=== PATIENT | female | born 1970 | race Caucasian/White ===

== ENCOUNTER 2020-09-26 16:08 | Emergency (ER) | payer OTHER ==
[~2020-09-26 16:08] MED LIST: CLEOCIN HCL300 MG PO
== END 2020-09-26 20:09 | disposition home or self-care (01) ==
LOC: ER1 16:08
DX: S06.9X9A Unspecified intracranial injury with loss of consciousness of unspecified duration, initial encounter (principal); S01.111A Laceration without foreign body of right eyelid and periocular area, initial encounter; S80.01XA Contusion of right knee, initial encounter; S60.221A Contusion of right hand, initial encounter; W10.9XXA Fall (on) (from) unspecified stairs and steps, initial encounter; F17.200 Nicotine dependence, unspecified, uncomplicated; Y92.009 Unspecified place in unspecified non-institutional (private) residence as the place of occurrence of the external cause; Z23 Encounter for immunization
CPT/HCPCS: 12001; 70450; 73130; 73564; 90471; 90715; 99284

== ENCOUNTER → 2021-06-12 | Outpatient (CLI) | payer OTHER | LOC: RAD 13:48 | DX: R05.9 Cough, unspecified (principal); M79.641 Pain in right hand; M54.2 Cervicalgia; M54.6 Pain in thoracic spine; M54.50 Low back pain, unspecified; M47.816 Spondylosis without myelopathy or radiculopathy, lumbar region; M47.812 Spondylosis without myelopathy or radiculopathy, cervical region; M47.814 Spondylosis without myelopathy or radiculopathy, thoracic region; S62.326A Displaced fracture of shaft of fifth metacarpal bone, right hand, initial encounter for closed fracture; W22.09XA Striking against other stationary object, initial encounter | CPT/HCPCS: 71046; 72050; 72072; 72110; 73130 ==

== ENCOUNTER → 2021-11-07 | Outpatient (CLI) | payer OTHER | LOC: KOH-I 15:41 | DX: J32.9 Chronic sinusitis, unspecified (principal) | CPT/HCPCS: 70486 ==

== ENCOUNTER 2021-11-14 08:13 | Inpatient (IN) | payer OTHER ==
[~2021-11-14] VITALS: Ht 175.3 cm; Wt 88.9 kg
[2021-11-14 09:15] LABS: HEMOGLOBIN 11.5 gm/dl (12.3-15.3); RED BLOOD COUNT 3.59 M/UL (4.00-5.10); WHITE BLOOD COUNT 9.8 K/UL (4.5-11.0)
[2021-11-14] MEDS ORDERED: CLONIDINE HCL0.1 MG PO (12:34)
[2021-11-14] MEDS ORDERED: GABAPENTIN800 MG PO (12:34)
[2021-11-14] MEDS ORDERED: SERTRALINE HCL50 MG PO (12:35)
[2021-11-14] MEDS ORDERED: ONDANSETRON ODT4 MG PO (12:35)
[2021-11-14] MEDS ORDERED: TOPIRAMATE200 MG PO (12:36)
[2021-11-15 02:31] LABS: HEMOGLOBIN 11.4 gm/dl (12.3-15.3); RED BLOOD COUNT 3.58 M/UL (4.00-5.10)
[2021-11-16 02:05] LABS: RED BLOOD COUNT 3.44 M/UL (4.00-5.10); WHITE BLOOD COUNT 6.5 K/UL (4.5-11.0)
--- NOTE | 2021-11-17 11:10 | NUR ---
PT ASKING TO GO SMOKE , I TOLD HER WE WERE A NON SMOKING FACILITY SHE TOLD ME TO UNHOOK HER AND SHE LEFT THE FLOOR. WHEN SHE RETURNED SHE ASKED SEVERAL TIMES WHEN THE DOCTOR WOULD BE MAKING ROUNDS . I TOLD HER HOPEFULLY SOON. WHEN SHE ASKED ME LATER FOR SOMETHING FOR HEART BURN I CALLED DR FERRIS AND SHE ORDERED TUMS AND SAID SHE WAS IN THE ER AND WOULD COME SEE HER NEXT. THE MAN WITH HER ASKED WHEN SHE WAS GOING HOME? I TOLD HIM WE WOULD HAVE TO ASK THE DOCTOR ,I DIDNT KNOW WHEN HE SAID IN A LOUD VOICE SHE IS GOING HOME TODAY. I SAID OK AND WALKED AWAY
--- NOTE | 2021-11-17 15:55 | NUR ---
DR FERRIS IN THE ROOM
== END 2021-11-17 16:17 | disposition home or self-care (01) | DRG 640 ==
LOC: ER1 08:13 → CDU 11:16 → PROG CARE 11:16 → MED SURG 4 11-16 16:50
PROVIDERS: Physician Assistant; Physician Assistant Medical; ADMIT Internal Medicine
DX: E87.1 Hypo-osmolality and hyponatremia (principal); J18.9 Pneumonia, unspecified organism; N30.00 Acute cystitis without hematuria; N17.9 Acute kidney failure, unspecified; E87.2 Acidosis; F17.200 Nicotine dependence, unspecified, uncomplicated; E87.6 Hypokalemia; Z20.822 Contact with and (suspected) exposure to COVID-19; G40.909 Epilepsy, unspecified, not intractable, without status epilepticus; B96.20 Unspecified Escherichia coli [E. coli] as the cause of diseases classified elsewhere; N18.30 Chronic kidney disease, stage 3 unspecified; D64.9 Anemia, unspecified; E27.8 Other specified disorders of adrenal gland; Z88.0 Allergy status to penicillin; Z90.710 Acquired absence of both cervix and uterus; Z88.8 Allergy status to other drugs, medicaments and biological substances; Z98.890 Other specified postprocedural states; Z83.3 Family history of diabetes mellitus
CPT/HCPCS: 0240U; 36415; 71045; 71250; 80048; 80053; 81001; 82436; 82570; 83605; 83735; 83930; 83935; 84133; 84295; 84300; 85025; 85027; 87040; 87077; 87086; 87186; 96374; 96375; 99285; J0696; J1650; J1885; J2405; J2550